=== PATIENT | female | born 1960 | race Caucasian/White ===

== ENCOUNTER 2018-01-14 19:43 | Emergency (ER) | payer SELFPAY ==
[~2018-01-14] VITALS: Ht 154.9 cm; Wt 72.6 kg
[2018-01-14 20:37] LABS: BILIRUBIN NEGATIVE (NEGATIVE); BLOOD TRACE-INTACT (NEGATIVE); CLARITY CLEAR (CLEAR); COLOR YELLOW (YELLOW); GLUCOSE TRACE (NEGATIVE); KETONE NEGATIVE (NEGATIVE); LEUKO ESTERASE NEGATIVE (NEGATIVE); NITRITE POSITIVE (NEGATIVE); SPECIFIC GRAVITY <= 1.005 (1.005-1.030)
[2018-01-14 21:04] LABS: BACTERIA TRACE; EPITHELIAL CELLS 15-20; RBC 0-2 rbc/hpf (0-2)
[2018-01-14] MEDS ORDERED: PYRIDIUM200 M1 PO (21:29)
[2018-01-14] MEDS ORDERED: KEFLEX500 M1 PO (21:29)
== END 2018-01-14 21:40 | disposition home or self-care (01) ==
LOC: ED 19:43
PROVIDERS: Emergency Medicine Emergency Medical Services
DX: N39.0 Urinary tract infection, site not specified (principal); M54.5 Low back pain; Z91.040 Latex allergy status

== ENCOUNTER → 2018-01-25 | Outpatient (CLI) | payer SELFPAY ==
[~2018-01-25] MED LIST: KEFLEX500 M1 PO; PYRIDIUM200 M1 PO
[2018-01-25 16:20] LABS: BILIRUBIN NEGATIVE (NEGATIVE); BLOOD NEGATIVE (NEGATIVE); CLARITY SL CLOUDY (CLEAR); COLOR YELLOW (YELLOW); GLUCOSE NEGATIVE (NEGATIVE); KETONE 1+ (NEGATIVE); LEUKO ESTERASE NEGATIVE (NEGATIVE); NITRITE NEGATIVE (NEGATIVE); PH 5.5 (5.0-9.0); SPECIFIC GRAVITY 1.025 (1.005-1.030)
[2018-01-25 16:26] LABS: BACTERIA 1+; HYALINE CAST 21-30; MUCOUS 2+
== END | disposition home or self-care (01) ==
LOC: LAB 15:58
PROVIDERS: Family Medicine
DX: N39.0 Urinary tract infection, site not specified (principal)